=== PATIENT | female | born 1985 | race African-American/Black ===

== ENCOUNTER 2016-08-31 12:50 | Emergency (ER) | payer SELFPAY ==
[2016-08-31 12:58] VITALS: BP 107/62; PULSE 89; TEMP 98.1; BMI 21.7
--- NOTE | 2016-08-31 14:08 | PDOC ---
[id number] HEADACHE, LUMP ON RT BREAST Time Seen by Provider: 08/31/16 13:10 - History of Present Illness Initial Comments: 08/31/16 14:01 CHIEF COMPLAINT: lump on breast HISTORY OF PRESENT ILLNESS: 30 yo F with no PMH presents to [facility] with painful "lump on breast." Patient reports that she has been for 16 months since her daughter was born. She denies fever or chills but does report chronic headache and two episodes of vomiting this morning. PAST MEDICAL HISTORY: Denies past medical history FAMILY HISTORY: Denies SOCIAL HISTORY: Denies tobacco, alcohol, illicit drug use. SURGICAL HISTORY: Denies ALLERGIES: No known drug allergies REVIEW OF SYSTEMS General/Constitutional: Denies fever or chills. Denies weakness, weight change. HEENT: Denies change in vision. Denies ear pain or discharge. Denies sore throat. Cardiovascular: Denies chest pain or shortness of breath. Respiratory: Denies cough, wheezing, or hemoptysis. Gastrointestinal: Denies nausea, vomiting, diarrhea or constipation. Denies rectal bleeding. Genitourinary: Denies dysuria, frequency, or change in urination. Musculoskeletal: Denies joint or muscle swelling or pain. Denies neck or back pain. Skin and breasts: "I have a painful lump on my breast." PHYSICAL EXAM General Appearance: Well-appearing, appropriately dressed. No apparent distress. HEENT: EOMI, PERRLA, normal ENT inspection, normal voice, TMs normal, pharynx normal. No conjunctival pallor. No photophobia, scleral icterus. Respiratory/Chest: Lungs CTAB. Cardiovascular: RRR. S1, S2. Gastrointestinal/Abdominal: Normal bowel sounds. Abdomen soft, non-distended. No tenderness or rebound tenderness. No organomegaly, pulsatile mass, guarding , hernia, hepatomegaly, splenomegaly. Musculoskeletal/Extremities: Normal inspection. FROM of all extremities, normal capillary refill. Pelvis Stable. No CVA tenderness. No tenderness to extremities, pedal edema, swelling, erythema or deformity. Integumentary: Tenderness to R breast with mild induration to medial aspect, no erythema appreciated. Appropriate color, dry, warm. No cyanosis, erythema, jaundice or rash Neurologic: wearing apparel assembler II-XII intact. Fully oriented, alert. Appropriate mood/affect. Motor strength 5/5. No appreciable EOM palsy, facial droop or sensory deficit. Past History - Past Medical History Allergies/Adverse Reactions: Allergies Allergy/AdvReac Type Severity Reaction Status Date / Time No Known Allergies Allergy Verified 08/31/16 12:58 Home Medications: Ambulatory Orders Acetaminophen [Tylenol -] 650 mg PO Q6H PRN #100 tablet 08/31/16 Cephalexin [Keflex] 500 mg PO BID #20 capsule 08/31/16 Asthma: No Cancer: No Cardiac Disorders: No Diabetes: No HTN: No Seizures: No Thyroid Disease: No - Surgical History Abdominal Surgery: No - Reproductive History (#): 3 Para: 3 - Immunization History Immunization Up to Date: Yes - Psycho/Social/Smoking Cessation Hx Anxiety: No Suicidal Ideation: No Smoking History: Never smoked Have you smoked in the past 12 months: No Hx Alcohol Use: No Drug/Substance Use Hx: No Substance Use Type: None Hx Substance Use Treatment: No *Physical Exam - Vital Signs Last Vital Signs Temp Pulse Resp BP Pulse Ox 98.1 F 89 20 107/62 97 08/31/16 12:55 08/31/16 12:55 08/31/16 12:55 08/31/16 12:55 08/31/16 12:55 Medical Decision Making - Medical Decision Making 08/31/16 14:06 30 yo F with no PMH presents to [facility] with painful "lump" to R breast with current history. Clinical presentation consistent with mastitis. Patient also c/o chronic headache previously managed by neurology. -Tylenol 650 PRN headache -Keflex 500 bid x 10 days Advised patient to take medications as prescribed and follow up with [facility] and neurology within 3-5 days. Advised patient of signs and symptoms for return to ER; patient verbailzed understanding and agrees to plan. *DC/Admit/Observation/Transfer Diagnosis at time of Disposition: Mastitis - Discharge Dispostion Disposition: HOME Condition at time of disposition: Stable Admit: No - Prescriptions Prescriptions: Cephalexin [Keflex] 500 mg PO BID #20 capsule Acetaminophen [Tylenol -] 650 mg PO Q6H PRN #100 tablet PRN Reason: Headache - Referrals Referrals: Doretha Frank [Primary Care Provider] - Aman Canchola MD [Staff Physician] - Shantanu Lucero MD [Staff Physician] - - Patient Instructions Printed Discharge Instructions: DI for Mastitis Additional Instructions: Please take medications as prescribed. As discussed, please follow up with neurology and gynecology within 3-5 days. If you experience any fever or headache unrelieved by Tylenol, develop persistent vomiting or diarrhea, or increased pain, swelling, or redness to your breast, please return to the ER. - Post Discharge Activity Work/School Note: Back to Work
== END 2016-08-31 14:19 | disposition home or self-care (01) ==
LOC: JERFT 12:50
DX: N61.0 Mastitis without abscess (principal)
CPT/HCPCS: 99281-25

== ENCOUNTER 2017-07-24 17:43 | Emergency (ER) | payer OTHER ==
--- NOTE | 2017-07-24 17:58 | PDOC ---
Rapid Medical Evaluation Time Seen by Provider: 07/24/17 17:50 Medical Evaluation: Allergies Allergy/AdvReac Type Severity Reaction Status Date / Time No Known Allergies Allergy Verified 08/31/16 12:58 07/24/17 17:54 I have performed a brief in-person evaluation of this patient. The patient presents with a chief complaint of: "passed out in shower" x 5 min around 7 am, now has "migraine" vomiting - "something pushing out to the L side of my stomach", since 4 am, "like over 20" episodes of vomiting, diarrhea, LMP 2 /3 Pertinent physical exam findings: well appearing, no apparent ventral hernia I have ordered the following: labs The patient will proceed to the ED for further evaluation. Discharge Disposition - Diagnosis Syncope - Referrals - Patient Instructions - Post Discharge Activity
[2017-07-24] MEDS ORDERED: ONDANSETRON 4 MG TABLET PO ONE ×2 (18:00→18:25)
[2017-07-24 18:04] VITALS: BP 103/69; PULSE 102; TEMP 98.1; BMI 25.7
[2017-07-24 18:37] LABS: BASO % 0.3 % (0-2.0); EOS % 0.2 % (0-4.5); HEMATOCRIT 45.2 % (32.4-45.2); HEMOGLOBIN 15.3 GM/dL (10.7-15.3); MCH 30.8 pg (25.7-33.7); MCHC 33.9 g/dl (32.0-36.0); MEAN CELL VOLUME 90.8 fl (80-96); MEAN PLT VOLUME 10.5 fl (7.5-11.1); MONO % 2.9 % (3.8-10.2); NEUT % 92.6 % (42.8-82.8); PLATELET COUNT 189 K/MM3 (134-434); RBC 4.98 M/mm3 (3.60-5.2); RDW 12.9 % (11.6-15.6); WHITE BLOOD COUNT 9.2 K/mm3 (4.0-10.0)
[2017-07-24 19:11] LABS: ALBUMIN 4.2 g/dl (3.4-5.0); ANION GAP 7 (8-16); BILIRUBIN,TOTAL 0.8 mg/dL (0.2-1.0); BLOOD UREA NITROGEN 17 mg/dL (7-18); CALCIUM 8.6 mg/dL (8.5-10.1); CHLORIDE 102 mmol/L (98-107); CO2 27 mmol/L (21-32); CREATININE 0.8 mg/dL (0.55-1.02); GLUCOSE,RANDOM 97 mg/dL (74-106); POTASSIUM 4.5 mmol/L (3.5-5.1); SGOT/AST 16 U/L (15-37); SGPT/ALT 22 U/L (12-78); SODIUM 136 mmol/L (136-145); TOT PROT 7.8 g/dl (6.4-8.2)
[2017-07-24 19:14] LABS: ALK PHOS 73 U/L (45-117)
[2017-07-24 19:19] LABS: INR 1.05 (0.82-1.09); PROTHROMBIN TIME (PATIENT) 11.9 SEC (9.98-11.88)
--- NOTE | 2017-07-24 20:37 | PDOC ---
History of Present Illness - General Chief Complaint: Nausea/Vomiting Stated Complaint: STOMACH PAIN Time Seen by Provider: 07/24/17 17:50 - History of Present Illness Initial Comments: 07/24/17 20:50 Ms. Phillips is a 31 yo female w/ no pmh who presents c/o repeated episodes of vomiting since she got home from her overnight job at the [employer] office at around 4am this morning. She reports that her vomit was orange and that this was complicated by an episode of "feignting" in the shower where she lost conciousness for around 5 minutes and wouldn't respond or open her eyes. She has had a migraine since around this time as well and feels like there is a "ball" pushing out from her left side whenever she vomits. She also reports 2 episodes of diarrhea today as well that she says consisted of loose stool. The patient denies chest pain, shortness of breath, headache and dizziness. Denies fever, chills, and constipation. Denies dysuria, frequency, urgency and hematuria. Allergies: NKDA Past History - Past Medical History Allergies/Adverse Reactions: Allergies Allergy/AdvReac Type Severity Reaction Status Date / Time No Known Allergies Allergy Verified 08/31/16 12:58 Home Medications: Ambulatory Orders Ibuprofen [Motrin -] 600 mg PO TID #4 tablet 07/25/17 Asthma: No Cancer: No Cardiac Disorders: No COPD: No Diabetes: No HTN: No Seizures: No Thyroid Disease: No Other medical history: migraines - Surgical History Abdominal Surgery: No - Reproductive History (#): 3 Para: 3 - Immunization History Immunization Up to Date: Yes - Suicide/Smoking/Psychosocial Hx Smoking History: Never smoked Have you smoked in the past 12 months: No Information on smoking cessation initiated: No Hx Alcohol Use: No Drug/Substance Use Hx: No Substance Use Type: None Hx Substance Use Treatment: No Review of Systems - Review of Systems Comments:: 07/24/17 20:56 GENERAL/CONSTITUTIONAL: No fever or chills. No weakness. HEAD, EYES, EARS, NOSE AND THROAT: No change in vision. No ear pain or discharge. No sore throat. CARDIOVASCULAR: No chest pain or shortness of breath RESPIRATORY: No cough, wheezing, or hemoptysis. GASTROINTESTINAL: No nausea, vomiting, diarrhea or constipation. GENITOURINARY: No dysuria, frequency, or change in urination. MUSCULOSKELETAL: No joint or muscle swelling or pain. No neck or back pain. SKIN: No rash NEUROLOGIC: No headache, vertigo, loss of consciousness, or change in strength/ sensation. ENDOCRINE: No increased thirst. No abnormal weight change HEMATOLOGIC/LYMPHATIC: No anemia, easy bleeding, or history of blood clots. ALLERGIC/IMMUNOLOGIC: No hives or skin allergy. *Physical Exam - Vital Signs Last Vital Signs Temp Pulse Resp BP Pulse Ox 98.1 F 102 H 20 103/69 100 07/24/17 17:59 07/24/17 17:59 07/24/17 17:59 07/24/17 17:59 07/24/17 17:59 - Physical Exam Comments: 07/24/17 20:56 GENERAL: Awake, alert, and fully oriented, in no acute distress HEAD: No signs of trauma, normocephalic, atraumatic EYES: PERRLA, EOMI, sclera anicteric, conjunctiva clear ENT: Auricles normal inspection, hearing grossly normal, nares patent, oropharynx clear without exudates. Moist mucosa NECK: Normal ROM, supple, no lymphadenopathy, JVD, or masses LUNGS: No distress, speaks full sentences, clear to auscultation bilaterally HEART: Regular rate and rhythm, normal S1 and S2, no murmurs, rubs or gallops, peripheral pulses normal and equal bilaterally. ABDOMEN: +TTP in LLQ more than RLQ, Soft, normoactive bowel sounds. No guarding , no rebound. No masses EXTREMITIES: Normal inspection, Normal range of motion, no edema. No clubbing or cyanosis. NEUROLOGICAL: Cranial nerves II through XII grossly intact. Normal speech, normal gait, no focal sensorimotor deficits SKIN: Warm, Dry, normal turgor, no rashes or lesions noted. : No CMT, No TTP, no blood noted - physiologic discharge. ED Treatment Course - LABORATORY CBC & Chemistry Diagram: 07/24/17 18:19 07/24/17 18:19 - ADDITIONAL ORDERS Additional order review: Laboratory Results 07/24/17 07/24/17 07/24/17 18:30 18:19 18:19 PT with INR INR Sodium 136 Potassium 4.5 Chloride 102 Carbon Dioxide 27 Anion Gap 7 L BUN 17 Creatinine 0.8 Creat Clearance w eGFR > 60 Random Glucose 97 Calcium 8.6 Total Bilirubin 0.8 D AST 16 ALT 22 Alkaline Phosphatase 73 Creatine Kinase 115 Troponin I < 0.02 Total Protein 7.8 Albumin 4.2 Lipase 130 Urine HCG, Qual Negative 07/24/17 18:19 PT with INR 11.90 H INR 1.05 Sodium Potassium Chloride Carbon Dioxide Anion Gap BUN Creatinine Creat Clearance w eGFR Random Glucose Calcium Total Bilirubin AST ALT Alkaline Phosphatase Creatine Kinase Troponin I Total Protein Albumin Lipase Urine HCG, Qual 07/24/17 18:19 RBC 4.98 MCV 90.8 MCHC 33.9 RDW 12.9 MPV 10.5 Neutrophils % 92.6 H Lymphocytes % 4.0 L D Monocytes % 2.9 L Eosinophils % 0.2 Basophils % 0.3 - Medications Given in the ED: ED Medications Discontinued Medications Generic Name Dose Route Start Last Admin Trade Name Freq PRN Reason Stop Dose Admin Ondansetron HCl 4 mg 07/24/17 18:00 18 18:27 Zofran - PO 07/24/17 18:01 4 mg ONCE ONE Administration Medical Decision Making - Medical Decision Making 07/24/17 22:45 Ms. Phillips is a 31 yo female w/ pmh as described who presents for evaluation of nausea/vomiting/diarrhea. Labs grossly wnl as below, maalox/zofran/pepcid given for symptomatic treatment. Patient reporting some alleviation of symptoms. Abdomen/Pelvis CT ordered for further evaluation. Significant for findings of left arm of IUD extending into myometrium of lower left uterine body - probably representing myometrial embedment. No definite extension through serosal layer. IUD stem tip located in lower uterine segment. Also, Prominent left greater than right parauterine vessels which can be seen in pelvic congestion syndrome. 2.0 cm dominant follicle right ovary. Small physiologic free fluid cul-de-sac. [facility] paged for consult. Discussed patient with Dr. Gilliland who recommended patient follow-up in clinic tomorrow for removal of IUD. Patient verbalized understanding and agreement and will comply. Laboratory Results - last 24 hr 07/24/1718 07/24/17 18:19 18:19 18:19 WBC 9.2 RBC 4.98 Hgb 15.3 Hct 45.2 MCV 90.8 MCH 30.8 D MCHC 33.9 RDW 12.9 Plt Count 189 MPV 10.5 Neutrophils % 92.6 H Lymphocytes % 4.0 L D Monocytes % 2.9 L Eosinophils % 0.2 Basophils % 0.3 PT with INR 11.90 H INR 1.05 Sodium 136 Potassium 4.5 Chloride 102 Carbon Dioxide 27 Anion Gap 7 L BUN 17 Creatinine 0.8 Creat Clearance w eGFR > 60 Random Glucose 97 Calcium 8.6 Total Bilirubin 0.8 D AST 16 ALT 22 Alkaline Phosphatase 73 Creatine Kinase 115 Troponin I < 0.02 Total Protein 7.8 Albumin 4.2 Lipase Urine HCG, Qual 07/24/17 07/24/17 18:19 18:30 WBC RBC Hgb Hct MCV MCH MCHC RDW Plt Count MPV Neutrophils % Lymphocytes % Monocytes % Eosinophils % Basophils % PT with INR INR Sodium Potassium Chloride Carbon Dioxide Anion Gap BUN Creatinine Creat Clearance w eGFR Random Glucose Calcium Total Bilirubin AST ALT Alkaline Phosphatase Creatine Kinase Troponin I Total Protein Albumin Lipase 130 Urine HCG, Qual Negative *DC/Admit/Observation/Transfer Diagnosis at time of Disposition: IUD complication Qualifiers: Device complication type: unspecified Encounter type: initial encounter Qualified Code(s): T83.9XXA - Unspecified complication of genitourinary prosthetic device, implant and graft, initial encounter - Discharge Dispostion Disposition: HOME - Referrals Referrals: Doretha Frank [Primary Care Provider] - - Patient Instructions Printed Discharge Instructions: Intrauterine Device Removal Additional Instructions: Please follow-up with [facility] tomorrow as discussed. A prescription has been called to your pharmacy for pain control in the mean time if needed. Please return to ER if any increase in pain, fever, or other concerning symptoms. - Post Discharge Activity
[2017-07-24] MEDS ORDERED: SODIUM CHLORIDE 1,000 ML IV STA (21:21)
[2017-07-24] MEDS ORDERED: FAMOTIDINE IV 20 MG/12 ML VIAL IVPB ONE (21:21)
[2017-07-24] MEDS ORDERED: MAG HYDROX/AL HYDROX/SIMETH 30 ML UNIT-DOSE CUP PO ONE (21:53)
[2017-07-24] MEDS ORDERED: MAG HYDROX/AL HYDROX/SIMETH 30 ML UNIT-DOSE CUP ONE (21:54)
[2017-07-24] MEDS ORDERED: FAMOTIDINE 20 MG/50 ML IVPB 20 MG/50 ML MG IVPB ONE (21:54)
[2017-07-25] MEDS ORDERED: KETOROLAC TROMETHAMINE 30 MG/1 ML VIAL IVPUSH ONE (03:33)
[2017-07-25] MEDS ORDERED: KETOROLAC TROMETHAMINE 30 MG/1 ML VIAL ONE (03:44)
--- NOTE | 2017-07-25 08:53 | EKG ---
Test Reason : Blood Pressure : / mmHG Vent. Rate : 075 BPM Atrial Rate : 075 BPM P-R Int : 152 ms QRS Dur : 090 ms QT Int : 396 ms P-R-T Axes : 046 077 035 degrees QTc Int : 442 ms NORMAL SINUS RHYTHM WITH SINUS ARRHYTHMIA NONSPECIFIC T WAVE ABNORMALITY ABNORMAL ECG Confirmed by Enrike Alegre MD ([id number]) on 07/25/2017 8:52:39 AM Referred By: Confirmed By:Enrike Alegre MD
== END 2017-07-25 03:58 | disposition home or self-care (01) ==
LOC: JER 17:43
PROC: 3E033GC Introduction of Other Therapeutic Substance into Peripheral Vein, Percutaneous Approach (ICD-10-PCS; principal; 2017-07-24)
PROC: 3E0333Z Introduction of Anti-inflammatory into Peripheral Vein, Percutaneous Approach (ICD-10-PCS; 2017-07-24)
DX: T83.89XA Other specified complication of genitourinary prosthetic devices, implants and grafts, initial encounter (principal)
CPT/HCPCS: 36415; 74177-TC; 80053; 82550; 83690; 84484; 84703; 85025; 85610; 87081; 87491; 87591; 93005; 93010; 96374; 96375; 99283-25

== ENCOUNTER 2019-06-30 22:02 | Emergency (ER) | payer OTHER ==
[2019-06-30 22:18] VITALS: BP 106/62; PULSE 100; TEMP 100.5; BMI 24.7
[2019-06-30] MEDS ORDERED: SODIUM CHLORIDE 0.9% 500 ML INFUS.BAG IV ONE (23:16)
[2019-06-30] MEDS ORDERED: METOCLOPRAMIDE HCL INJECTION 10 MG/2 ML VIAL IVPB ONE (23:16)
[2019-06-30] MEDS ORDERED: ACETAMINOPHEN 1000 MG/100 ML VIAL (NON FORMULARY) IVPB ONE (23:16)
--- NOTE | 2019-06-30 23:16 | PDOC ---
History of Present Illness - General Chief Complaint: Headache Stated Complaint: COLD SYMPTOMS Time Seen by Provider: 06/30/19 22:50 History Source: Patient Exam Limitations: No Limitations - History of Present Illness Initial Comments: 06/30/19 23:15 Xenia Phillips is a 33F with PMH migraines presenting with flu-like symptoms. Patient reports that she has had flu-like symptoms for the last 5 days, including nausea, vomiting, myalgias, fever/chills, diarrhea, and HOYT. Has been taking Tylenol without improvement of symptoms. Her children have the same illness profile. Tolerating PO soups. Denies urinary sx, chest pain, SOB, abd pain. Says her headache is a frontal headache that is 8/10 in intensity, has history of migraines, same as her usual HOYT but in the context of fever/chills. Past History - Past Medical History Allergies/Adverse Reactions: Allergies Allergy/AdvReac Type Severity Reaction Status Date / Time No Known Allergies Allergy Verified 08/31/16 12:58 Home Medications: Ambulatory Orders Ibuprofen [Motrin -] 600 mg PO TID #4 tablet 07/25/17 Asthma: No Cancer: No Cardiac Disorders: No COPD: No Diabetes: No HTN: No Seizures: No Thyroid Disease: No - Surgical History Abdominal Surgery: No - Reproductive History (#): 3 Para: 3 - Immunization History Immunization Up to Date: Yes - Psycho Social/Smoking Cessation Hx Smoking History: Never smoked Have you smoked in the past 12 months: No Hx Alcohol Use: No Drug/Substance Use Hx: No Substance Use Type: None Hx Substance Use Treatment: No Review of Systems - Review of Systems Able to Perform ROS?: Yes Constitutional: Yes: Chills, Fever HEENTM: No: Symptoms Reported Respiratory: Yes: Cough. No: Shortness of Breath Cardiac (ROS): No: Chest Pain, Irregular Heart Rate, Lightheadedness, Syncope, Chest Tightness ABD/GI: Yes: Diarrhea, Nausea, Poor Appetite, Poor Fluid Intake, Vomiting. No: Constipated : No: Symptoms Reported Musculoskeletal: No: Symptoms Reported Integumentary: No: Symptoms Reported Neurological: Yes: Headache, Dizziness. No: Weakness Endocrine: No: Symptoms Reported Hematologic/Lymphatic: No: Symptoms Reported All Other Systems: Reviewed and Negative *Physical Exam - Vital Signs Last Vital Signs Temp Pulse Resp BP Pulse Ox 100.5 F H 100 H 20 106/62 97 06/30/19 22:15 06/30/19 22:15 06/30/19 22:15 06/30/19 22:15 06/30/19 22:15 - Physical Exam General Appearance: Yes: Nourished, Appropriately Dressed, Mild Distress, Other (sleepy, resting in chair, in no acute distress) HEENT: positive: EOMI, ANUSHA, Normal Voice, Symmetrical, Pharynx Normal, Photophobia, Hearing Grossly Normal. negative: Scleral Icterus (R), Scleral Icterus (L), Pharyngeal Erythema, Tonsillar Exudate, Tonsillar Erythema Neck: positive: Trachea midline, Supple. negative: Tender, Rigid, Lymphadenopathy (R), Lymphadenopathy (L), Tender lateral, Tender midline Respiratory/Chest: positive: Lungs Clear, Normal Breath Sounds, Respiratory Distress. negative: Chest Tender, Accessory Muscle Use, Crackles, Rales, Rhonchi, Stridor, Wheezing Cardiovascular: positive: Regular Rhythm, Regular Rate. negative: Murmur Gastrointestinal/Abdominal: positive: Normal Bowel Sounds, Flat, Soft. negative : Tender, Organomegaly, Guarding, Rebound Musculoskeletal: positive: Normal Inspection. negative: CVA Tenderness Extremity: positive: Normal Capillary Refill, Normal Inspection, Normal Range of Motion, Pelvis Stable. negative: Tender Integumentary: negative: Normal Color, Dry, Warm Neurologic: positive: Fully Oriented, Alert, Normal Mood/Affect, Normal Response , Motor Strength 5/5 ED Treatment Course - LABORATORY CBC & Chemistry Diagram: 07/01/19 00:00 07/01/19 00:00 Medical Decision Making - Medical Decision Making 07/01/19 01:44 Patient presents with flu-like symptoms with multiple sick children in the house , including fever/chills, HOYT, nausea, vomiting, diarrhea. HOYT pain the worst, but no neuro deficits, not actively vomiting in ED. VS shows tachycardia and and fever. - CMP/CBC for eval lytes/infection - serum for eval as cause of N/V - 1L NS, Reglan, Ofirmev ordered for symptom management Labs notable for: - CMP WNL - CBC WNL - negative Daughter has influenza A positive in ED, likely mother has flu as well. Feels better after meds. Stable for discharge home with flu management instructions and PMD f/u. Discharge - Discharge Information Problems reviewed: Yes Clinical Impression/Diagnosis: Nausea & vomiting Qualifiers: Vomiting type: unspecified Vomiting Intractability: non-intractable Qualified Code(s): R11.2 - Nausea with vomiting, unspecified Headache Qualifiers: Headache type: unspecified Headache chronicity pattern: acute headache Intractability: not intractable Qualified Code(s): R51 - Headache Condition: Stable Disposition: HOME - Admission No - Follow up/Referral - Patient Discharge Instructions Patient Printed Discharge Instructions: DI for Influenza -- Adult Additional Instructions: Today you were evaluated for headache, nausea, vomiting, and fever. Your child was diagnosed with the flu, meaning you most likely also have the flu. Your labs are normal and not concerning. We gave you IV fluids, Reglan, and Tylenol for your symptoms and you felt better. At home, please drink lots of fluids such as soup or Gatorade and get rest. Alternate between Tylenol and Motrin every 3 hours to control your fevers. Please avoid anyone who does not have the flu to avoid spreading it. See your primary doctor in the next 3 days for further care. If you experience worsening nausea, vomiting, fever, or any other new or concerning symptoms, please return to the emergency room. - Post Discharge Activity Work/Back to School Note: Back to Work
[2019-07-01 00:27] LABS: BASO % 0.4 % (0-2.0); EOS % 0.5 % (0-4.5); HEMATOCRIT 41.8 % (32.4-45.2); HEMOGLOBIN 14.3 GM/dL (10.7-15.3); LYMPH % 11.2 % (8-40); MCH 30.9 pg (25.7-33.7); MCHC 34.2 g/dl (32.0-36.0); MEAN CELL VOLUME 90.5 fl (80-96); MEAN PLT VOLUME 10.7 fl (7.5-11.1); MONO % 8.8 % (3.8-10.2); NEUT % 79.1 % (42.8-82.8); PLATELET COUNT 201 K/MM3 (134-434); RBC 4.62 M/mm3 (3.60-5.2); RDW 12.4 % (11.6-15.6); WHITE BLOOD COUNT 5.7 K/mm3 (4.0-10.0)
--- NOTE | 2019-07-01 00:40 | PDOC ---
Documentation entered by Mayte Tavarez SCRIBE, acting as scribe for Kaela Rolon MD. Kaela Rolon MD: This documentation has been prepared by the macibe, Mayte Tavarez SCRIBE, under my direction and personally reviewed by me in its entirety. I confirm that the documentation accurately reflects all work, treatment, procedures, and medical decision making performed by me. Attending Attestation - Resident Resident Name: Robert Blair - ED Attending Attestation I have performed the following: I have examined & evaluated the patient, The case was reviewed & discussed with the resident, I agree w/resident's findings & plan, Exceptions are as noted - HPI HPI: 06/30/19 23:35 The patient is a 33 year old female with a past medical history significant for migraine who presents to the emergency department with flu like symptoms. The patient presents with a headache, nausea with episodes of vomiting, diarrhea, fever and myalgia. Denies chest pain or shortness of breath. - Physicial Exam PE: 07/01/19 00:38 Well-nourished well-developed 33-year-old female with fever cough chills body aches and headache And normocephalic atraumatic Neck supple Lungs are clear to auscultation bilaterally CVS tachycardia Abdomen is soft nontender Skin warm and dry Extremities no deformities, full range of motion Neuro patient is alert and oriented x3, ambulating with ease - Medical Decision Making 07/01/19 00:39 This 33-year-old female presents with her 2 children, 1 of whom is positive for influenza A Her symptoms are flu like Patient was given fluids and Tylenol, she has no respiratory distress, no focal neuro deficits Impression URI/influenza Discharge home to take Tylenol, IV fluids, and rest she will be given a work note
[2019-07-01 00:52] LABS: BLOOD UREA NITROGEN 5.5 mg/dL (7-18); CREATININE 0.9 mg/dL (0.55-1.3)
[2019-07-01 00:53] LABS: ALBUMIN 3.9 g/dl (3.4-5.0); BILIRUBIN,TOTAL 0.3 mg/dL (0.2-1); CALCIUM 8.9 mg/dL (8.5-10.1); TOT PROT 7.6 g/dl (6.4-8.2)
[2019-07-01] MEDS ORDERED: METOCLOPRAMIDE HCL INJECTION 10 MG/2 ML VIAL ONE (00:55)
[2019-07-01] MEDS ORDERED: ACETAMINOPHEN INJECTION 100 ML IVPB ONE (00:55)
== END 2019-07-01 01:48 | disposition home or self-care (01) ==
LOC: JER 22:02
PROC: 3E033GC Introduction of Other Therapeutic Substance into Peripheral Vein, Percutaneous Approach (ICD-10-PCS; principal; 2019-06-30)
PROC: 3E033GC Introduction of Other Therapeutic Substance into Peripheral Vein, Percutaneous Approach (ICD-10-PCS; 2019-06-30)
PROC: 3E033NZ Introduction of Analgesics, Hypnotics, Sedatives into Peripheral Vein, Percutaneous Approach (ICD-10-PCS; 2019-06-30)
DX: J11.1 Influenza due to unidentified influenza virus with other respiratory manifestations (principal)
CPT/HCPCS: 36415; 80053; 84703; 85025; 96374; 96375; 99281-25; J0131

== ENCOUNTER 2020-08-12 03:28 | Emergency (ER) | payer OTHER ==
[2020-08-12 03:52] VITALS: BP 114/79; PULSE 62; TEMP 98.1; BMI 25.2
[2020-08-12] MEDS ORDERED: ACETAMINOPHEN 500 MG TABLET (FP) PO ONE (04:35)
[2020-08-12] MEDS ORDERED: ACETAMINOPHEN 325 MG TABLET (FP) ONE (04:42)
== END 2020-08-12 06:46 | disposition home or self-care (01) ==
LOC: JER 03:28
DX: G43.909 Migraine, unspecified, not intractable, without status migrainosus (principal); R10.84 Generalized abdominal pain
CPT/HCPCS: 84703; 99283-25

== ENCOUNTER 2021-01-09 09:46 | Emergency (ER) | payer OTHER ==
[2021-01-09 09:54] VITALS: BMI 24.3
[2021-01-09] MEDS ORDERED: SODIUM CHLORIDE 1,000 ML IV STA (10:57)
[2021-01-09] MEDS ORDERED: ACETAMINOPHEN 1000 MG/100 ML VIAL (NON FORMULARY) IVPB ONE (10:57)
[2021-01-09 11:48] LABS: BASO % 0.6 % (0-2.0); EOS % 0.4 % (0-4.5); HEMATOCRIT 41.8 % (32.4-45.2); HEMOGLOBIN 14.7 GM/dL (10.7-15.3); LYMPH % 25.2 % (8-40); MCH 31.9 pg (25.7-33.7); MCHC 35.1 g/dl (32.0-36.0); MEAN CELL VOLUME 90.8 fl (80-96); MEAN PLT VOLUME 9.6 fl (7.5-11.1); MONO % 6.2 % (3.8-10.2); NEUT % 67.6 % (42.8-82.8); PLATELET COUNT 247 10^3/uL (134-434); RBC 4.61 M/mm3 (3.60-5.2); RDW 12.7 % (11.6-15.6); WHITE BLOOD COUNT 5.1 K/mm3 (4.0-10.0)
[2021-01-09 11:58] LABS: ALBUMIN 4.1 g/dl (3.4-5.0); BLOOD UREA NITROGEN 7.7 mg/dL (7-18)
[2021-01-09 12:02] LABS: CREATININE 0.7 mg/dL (0.55-1.3)
[2021-01-09 12:04] LABS: BILIRUBIN,TOTAL 0.6 mg/dL (0.2-1); TOT PROT 8.1 g/dl (6.4-8.2)
[2021-01-09] MEDS ORDERED: ACETAMINOPHEN INJECTION 100 ML IVPB ONE (12:10)
[2021-01-09 12:47] LABS: URINE APPEARANCE CLEAR; URINE BILIRUBIN NEGATIVE (NEGATIVE); URINE COLOR YELLOW; URINE GLUCOSE (UA) NEGATIVE (NEGATIVE); URINE KETONE TRACE (NEGATIVE); URINE LEUK ESTERASE NEGATIVE (NEGATIVE); URINE NITRITE NEGATIVE (NEGATIVE); URINE PROTEIN NEGATIVE (NEGATIVE); URINE UROBILINOGEN 0.2 mg/dL (0.2-1.0)
[2021-01-09] MEDS ORDERED: ONDANSETRON *ODT* 4 MG TABLET SL ONE (12:57)
[2021-01-09] MEDS ORDERED: ONDANSETRON *ODT* 4 MG TABLET ONE (13:47)
[2021-01-09 16:12] VITALS: BP 112/68; PULSE 77; TEMP 97.9
== END 2021-01-09 16:20 | disposition home or self-care (01) ==
LOC: JER 09:46
PROC: 3E033GC Introduction of Other Therapeutic Substance into Peripheral Vein, Percutaneous Approach (ICD-10-PCS; principal; 2021-01-09)
PROC: 3E0337Z Introduction of Electrolytic and Water Balance Substance into Peripheral Vein, Percutaneous Approach (ICD-10-PCS; principal; 2021-01-09)
DX: O26.891 Other specified pregnancy related conditions, first trimester (principal); R10.31 Right lower quadrant pain; O21.9 Vomiting of pregnancy, unspecified; Z3A.01 Less than 8 weeks gestation of pregnancy
CPT/HCPCS: 36415; 76817-TC; 80053; 81003; 84702; 85025; 87086; 99284-25; C9803; J0131; Q0162; U0003; U0005

== ENCOUNTER 2021-12-09 14:33 | Emergency (ER) | payer OTHER ==
[2021-12-09 14:54] VITALS: BP 97/61; PULSE 80; TEMP 97.8; BMI 24.7
[2021-12-09] MEDS ORDERED: ACETAMINOPHEN 1000 MG/100 ML BAG IVPB ONE (17:54)
[2021-12-09] MEDS ORDERED: ACETAMINOPHEN INJECTION 100 ML IVPB ONE (19:27)
[2021-12-09 20:12] LABS: BASO % 0.5 % (0-2.0); EOS % 1.4 % (0-4.5); HEMATOCRIT 40.1 % (32.4-45.2); HEMOGLOBIN 13.8 GM/dL (10.7-15.3); LYMPH % 30.5 % (8-40); MCH 31.2 pg (25.7-33.7); MCHC 34.3 g/dl (32.0-36.0); MEAN CELL VOLUME 90.9 fl (80-96); MONO % 6.7 % (3.8-10.2); NEUT % 60.9 % (42.8-82.8); PLATELET COUNT 236 10^3/uL (134-434); RBC 4.41 M/mm3 (3.60-5.2); RDW 13.4 % (11.6-15.6); WHITE BLOOD COUNT 5.9 K/mm3 (4.0-10.0)
[2021-12-09 20:30] LABS: CALCIUM 8.8 mg/dL (8.5-10.1)
[2021-12-09 20:31] LABS: ALBUMIN 3.8 g/dl (3.4-5.0); BLOOD UREA NITROGEN 7.8 mg/dL (7-18)
[2021-12-09 20:34] LABS: CREATININE 0.6 mg/dL (0.55-1.3)
[2021-12-09 20:36] LABS: BILIRUBIN,TOTAL 0.3 mg/dL (0.2-1); TOT PROT 7.3 g/dl (6.4-8.2)
[2021-12-09 23:29] LABS: HCG,QUALITATIVE URINE Positive
[2021-12-09 23:31] LABS: URINE APPEARANCE CLEAR; URINE BILIRUBIN NEGATIVE (NEGATIVE); URINE COLOR YELLOW; URINE GLUCOSE (UA) NEGATIVE (NEGATIVE); URINE KETONE NEGATIVE (NEGATIVE); URINE LEUK ESTERASE NEGATIVE (NEGATIVE); URINE NITRITE NEGATIVE (NEGATIVE); URINE PROTEIN NEGATIVE (NEGATIVE); URINE UROBILINOGEN 0.2 mg/dL (0.2-1.0)
== END 2021-12-10 01:47 | disposition home or self-care (01) ==
LOC: JER 14:33
PROC: 3E033NZ Introduction of Analgesics, Hypnotics, Sedatives into Peripheral Vein, Percutaneous Approach (ICD-10-PCS; principal; 2021-12-09)
DX: R10.9 Unspecified abdominal pain (principal); R11.2 Nausea with vomiting, unspecified; Z3A.01 Less than 8 weeks gestation of pregnancy
CPT/HCPCS: 36415; 76830-TC; 80053; 81003; 84702; 84703; 85025; 86850; 86900; 86901; 87491; 87591; 99284-25

== ENCOUNTER 2021-12-15 05:48 | Inpatient (IN) | payer OTHER ==
[2021-12-15] MEDS ORDERED: ONDANSETRON 4 MG/2 ML VIAL IVPUSH ONE (06:33)
[2021-12-15] MEDS ORDERED: SODIUM CHLORIDE 1,000 ML IV STA (06:33)
[2021-12-15] MEDS ORDERED: ONDANSETRON 4 MG/2 ML VIAL ONE ×2 (06:41→21:27)
[2021-12-15 07:53] LABS: BASO % 0.4 % (0-2.0); EOS % 0.2 % (0-4.5); HEMATOCRIT 40.7 % (32.4-45.2); HEMOGLOBIN 14.1 GM/dL (10.7-15.3); LYMPH % 21.4 % (8-40); MCH 31.1 pg (25.7-33.7); MCHC 34.7 g/dl (32.0-36.0); MEAN CELL VOLUME 89.6 fl (80-96); MEAN PLT VOLUME 9.9 fl (7.5-11.1); MONO % 6.2 % (3.8-10.2); NEUT % 71.8 % (42.8-82.8); PLATELET COUNT 234 10^3/uL (134-434); RBC 4.54 M/mm3 (3.60-5.2); RDW 13.1 % (11.6-15.6); WHITE BLOOD COUNT 5.9 K/mm3 (4.0-10.0)
[2021-12-15] MEDS ORDERED: FOLIC ACID INJECTION - 1 MG, THIAMINE HCL 100 MG, MULTIVIT INJECTION ADULT 10 ML in SOD... IVPB ONE (08:14)
[2021-12-15] MEDS: DEXTROSE 5%-0.45% SALINE 1,000 ML IV SCH (08:22)
[2021-12-15] MEDS ORDERED: ACETAMINOPHEN 1000 MG/100 ML BAG IVPB ONE ×2 (08:24→21:26)
[2021-12-15] MEDS ORDERED: ACETAMINOPHEN INJECTION 100 ML IVPB ONE ×2 (08:26→21:27)
[2021-12-15 08:51] LABS: EPI CELLS >36 /uL (0-25.1); HYALINE CASTS 28 /uL (0-3.1); URINE APPEARANCE TURBID; URINE BACTERIA 6231 /uL (0-1359); URINE BILIRUBIN NEGATIVE (NEGATIVE); URINE COLOR YELLOW; URINE GLUCOSE (UA) TRACE (NEGATIVE); URINE KETONE 3+ (NEGATIVE); URINE LEUK ESTERASE 2+ (NEGATIVE); URINE NITRITE NEGATIVE (NEGATIVE); URINE PROTEIN 1+ (NEGATIVE); URINE RBC 31 /uL (0-23.9); URINE WBC 841 /uL (0-25.8)
[2021-12-15 09:04] LABS: HCG,QUALITATIVE URINE Positive
[2021-12-15] MEDS ORDERED: METOCLOPRAMIDE HCL INJECTION 10 MG/2 ML VIAL IVPUSH ONE (11:51)
[2021-12-15] MEDS ORDERED: METOCLOPRAMIDE HCL INJECTION 10 MG/2 ML VIAL ONE (11:52)
[2021-12-15] MEDS ORDERED: CEFTRIAXONE 1,000 MG in DEXTROSE 5%-WATER - 50 ML IVPB ONE (13:30)
[2021-12-15] MEDS ORDERED: CEFTRIAXONE 1 GM/50 ML BAG ONE (13:38)
[2021-12-15 14:44] LABS: ALBUMIN 4.1 g/dl (3.4-5.0)
[2021-12-15 14:46] LABS: CREATININE 0.8 mg/dL (0.55-1.3)
[2021-12-15 14:48] LABS: BILIRUBIN,TOTAL 0.6 mg/dL (0.2-1); TOT PROT 7.6 g/dl (6.4-8.2)
[2021-12-15 15:32] LABS: MAGNESIUM 2.1 mg/dL (1.8-2.4)
[2021-12-15 15:35] LABS: PHOSPHOROUS 3.6 mg/dL (2.5-4.9)
[2021-12-15 17:45] LABS: URINE APPEARANCE CLEAR; URINE BILIRUBIN NEGATIVE (NEGATIVE); URINE COLOR YELLOW; URINE GLUCOSE (UA) TRACE (NEGATIVE); URINE KETONE NEGATIVE (NEGATIVE); URINE LEUK ESTERASE NEGATIVE (NEGATIVE); URINE NITRITE NEGATIVE (NEGATIVE); URINE PROTEIN NEGATIVE (NEGATIVE); URINE UROBILINOGEN 0.2 mg/dL (0.2-1.0)
[2021-12-15] MEDS: ONDANSETRON 4 MG/2 ML VIAL IVPB PRN (21:32)
[2021-12-16] MEDS ORDERED: PROMETHAZINE HCL 25 MG/1 ML VIAL ONE (03:49)
[2021-12-16] MEDS: PROMETHAZINE HCL 25 MG/1 ML VIAL IVPB PRN (03:53)
[2021-12-16] MEDS ORDERED: ACETAMINOPHEN 1000 MG/100 ML BAG IVPB ONE (06:01)
[2021-12-16 07:18] LABS: BASO % 0.3 % (0-2.0); EOS % 0.6 % (0-4.5); HEMATOCRIT 40.3 % (32.4-45.2); HEMOGLOBIN 14.2 GM/dL (10.7-15.3); LYMPH % 34.9 % (8-40); MCH 31.5 pg (25.7-33.7); MCHC 35.1 g/dl (32.0-36.0); MEAN CELL VOLUME 89.7 fl (80-96); MEAN PLT VOLUME 9.4 fl (7.5-11.1); MONO % 7.7 % (3.8-10.2); NEUT % 56.5 % (42.8-82.8); PLATELET COUNT 216 10^3/uL (134-434); RDW 13.1 % (11.6-15.6); WHITE BLOOD COUNT 5.2 K/mm3 (4.0-10.0)
[2021-12-16 07:50] LABS: CALCIUM 8.9 mg/dL (8.5-10.1)
[2021-12-16 07:51] LABS: ALBUMIN 3.8 g/dl (3.4-5.0); BLOOD UREA NITROGEN 5.7 mg/dL (7-18); MAGNESIUM 2.3 mg/dL (1.8-2.4)
[2021-12-16 07:54] LABS: BILIRUBIN,TOTAL 0.6 mg/dL (0.2-1); CREATININE 0.7 mg/dL (0.55-1.3); PHOSPHOROUS 3.6 mg/dL (2.5-4.9); TOT PROT 7.2 g/dl (6.4-8.2)
[2021-12-16] MEDS: ONDANSETRON 4 MG/2 ML VIAL IVPB PRN ×2 (11:00→19:56)
[2021-12-16] MEDS: DEXTROSE 5%-0.45% SALINE 1,000 ML IV SCH ×2 (11:01→19:55)
[2021-12-16] MEDS: ACETAMINOPHEN 1000 MG/100 ML BAG IVPB PRN (21:09)
[2021-12-17] MEDS: ACETAMINOPHEN 1000 MG/100 ML BAG IVPB PRN ×2 (01:33→16:08)
[2021-12-17] MEDS: DEXTROSE 5%-0.45% SALINE 1,000 ML IV SCH ×4 (01:34→21:00)
[2021-12-17 03:06] LABS: METHADONE, UR NEGATIVE (NEGATIVE)
[2021-12-17 03:07] LABS: OPIATES, URI NEGATIVE (NEGATIVE); PHENCYCLIDINE,URINE NEGATIVE (NEGATIVE)
[2021-12-17 03:09] LABS: COCAINE, UR NEGATIVE (NEGATIVE)
[2021-12-17 03:27] LABS: URINE AMPHETAMINES NEGATIVE (NEGATIVE); URINE BARBITURATES NEGATIVE (NEGATIVE); URINE BENZODIAZEPINES NEGATIVE (NEGATIVE)
[2021-12-17] MEDS: ONDANSETRON 4 MG/2 ML VIAL IVPB PRN ×2 (07:03→19:57)
[2021-12-17 11:52] LABS: HEMATOCRIT 36.8 % (32.4-45.2); HEMOGLOBIN 12.9 GM/dL (10.7-15.3); MCH 31.7 pg (25.7-33.7); MCHC 35.1 g/dl (32.0-36.0); MEAN CELL VOLUME 90.1 fl (80-96); MEAN PLT VOLUME 9.6 fl (7.5-11.1); PLATELET COUNT 214 10^3/uL (134-434); RBC 4.08 M/mm3 (3.60-5.2); RDW 12.8 % (11.6-15.6); WHITE BLOOD COUNT 4.5 K/mm3 (4.0-10.0)
[2021-12-17 12:11] LABS: CALCIUM 8.7 mg/dL (8.5-10.1)
[2021-12-17 12:12] LABS: BLOOD UREA NITROGEN 3.6 mg/dL (7-18); MAGNESIUM 2.1 mg/dL (1.8-2.4)
[2021-12-17 12:15] LABS: CREATININE 0.6 mg/dL (0.55-1.3); PHOSPHOROUS 3.1 mg/dL (2.5-4.9)
[2021-12-17] MEDS: LACTOBACILLUS ACIDOPHILUS 1 TABLET PO SCH (13:59)
[2021-12-18] MEDS: PROMETHAZINE HCL 25 MG/1 ML VIAL IVPB PRN (06:45)
[2021-12-18] MEDS: DEXTROSE 5%-0.45% SALINE 1,000 ML IV SCH (06:46)
[2021-12-18 09:00] LABS: HEMATOCRIT 36.6 % (32.4-45.2); HEMOGLOBIN 12.5 GM/dL (10.7-15.3); MCH 30.5 pg (25.7-33.7); MCHC 34.1 g/dl (32.0-36.0); MEAN CELL VOLUME 89.3 fl (80-96); MEAN PLT VOLUME 9.6 fl (7.5-11.1); PLATELET COUNT 207 10^3/uL (134-434); RDW 12.9 % (11.6-15.6); WHITE BLOOD COUNT 5.2 K/mm3 (4.0-10.0)
[2021-12-18 09:18] LABS: CHLORIDE 108 mmol/L (98-107); SODIUM 139 mmol/L (136-145)
[2021-12-18 09:25] LABS: ANION GAP 5 MMOL/L (8-16); CALCIUM 8.6 mg/dL (8.5-10.1); CO2 27 mmol/L (21-32)
[2021-12-18 09:26] LABS: GLUCOSE,RANDOM 104 mg/dL (74-106); MAGNESIUM 2.1 mg/dL (1.8-2.4)
[2021-12-18 09:29] LABS: BLOOD UREA NITROGEN 2.4 mg/dL (7-18); CREATININE 0.6 mg/dL (0.55-1.3); PHOSPHOROUS 3.4 mg/dL (2.5-4.9)
[2021-12-18] MEDS: LACTOBACILLUS ACIDOPHILUS 1 TABLET PO SCH (10:37)
[2021-12-18] MEDS: ENOXAPARIN NA (PORCINE) 30 MG/0.3 ML DISP.SYRIN SQ SCH (10:37)
[2021-12-18] MEDS: DEXTROSE 5%-NORMAL SALINE 1,000 ML IV SCH ×2 (10:48→16:03)
[2021-12-18] MEDS: ONDANSETRON 4 MG/2 ML VIAL IVPB PRN ×2 (14:50→22:42)
[2021-12-18] MEDS: ACETAMINOPHEN 1000 MG/100 ML BAG IVPB PRN ×2 (15:13→20:58)
[2021-12-19] MEDS: DEXTROSE 5%-NORMAL SALINE 1,000 ML IV SCH ×3 (00:22→10:30)
[2021-12-19 00:31] VITALS: BP 101/57; PULSE 64; TEMP 98.8
[2021-12-19] MEDS: LACTOBACILLUS ACIDOPHILUS 1 TABLET PO SCH (09:18)
[2021-12-19] MEDS: ENOXAPARIN NA (PORCINE) 30 MG/0.3 ML DISP.SYRIN SQ SCH (09:18)
[2021-12-19] MEDS ORDERED: PRENATAL VITAMINS W/ FOLIC ACID TABLET (FP) PO SCH (10:00)
[2021-12-19 10:52] LABS: HEMATOCRIT 34.1 % (32.4-45.2); HEMOGLOBIN 11.9 GM/dL (10.7-15.3); MCH 31.3 pg (25.7-33.7); MEAN CELL VOLUME 89.4 fl (80-96); MEAN PLT VOLUME 10.1 fl (7.5-11.1); PLATELET COUNT 202 10^3/uL (134-434); RBC 3.81 M/mm3 (3.60-5.2); RDW 12.9 % (11.6-15.6); WHITE BLOOD COUNT 4.9 K/mm3 (4.0-10.0)
[2021-12-19 11:19] LABS: CHLORIDE 106 mmol/L (98-107); SODIUM 139 mmol/L (136-145)
[2021-12-19 11:23] LABS: CALCIUM 8.1 mg/dL (8.5-10.1)
[2021-12-19 11:24] LABS: ANION GAP 7 MMOL/L (8-16); CO2 25 mmol/L (21-32); GLUCOSE,RANDOM 97 mg/dL (74-106)
[2021-12-19 11:27] LABS: CREATININE 0.5 mg/dL (0.55-1.3); PHOSPHOROUS 2.9 mg/dL (2.5-4.9)
[2021-12-19] MEDS ORDERED: PYRIDOXINE HCL 100 MG/1 ML VIAL IM SCH (11:30)
== END 2021-12-19 13:32 | disposition home or self-care (01) | DRG 566 ==
LOC: JER 05:48 → JERBED 14:02 → J5S 12-16 05:53
PROVIDERS: ADMIT Internal Medicine; ATTEND Internal Medicine
DX: O21.9 Vomiting of pregnancy, unspecified (principal); F12.90 Cannabis use, unspecified, uncomplicated; O26.899 Other specified pregnancy related conditions, unspecified trimester; O99.320 Drug use complicating pregnancy, unspecified trimester; Z3A.01 Less than 8 weeks gestation of pregnancy; R19.7 Diarrhea, unspecified; N83.202 Unspecified ovarian cyst, left side; N83.201 Unspecified ovarian cyst, right side; R10.31 Right lower quadrant pain
CPT/HCPCS: 36415; 74181-TC; 76817-TC; 76856-TC; 80048; 80053; 80307; 81003; 83690; 83735; 84100; 84702; 84703; 85025; 85027; 87086; 87324; 87449; 93005; 93010; 94010; 99285-25; C9803-CS; U0003; U0005